=== PATIENT | male | born 1980 | race American Indian/Alaskan Native ===

== ENCOUNTER 2021-10-02 12:50 | Emergency (ER) | payer MEDICARE ==
--- NOTE | 2021-10-02 13:35 | Emergency Department Report ---
ED CPR HPI - General Chief Complaint: Cardiac Arrest/CPR Stated Complaint: CARDIAC ARREST Time Seen by Provider: 10/02/21 13:28 Source: EMS (Verbal report received from emergency medical services. EMS documentation not available at time of chart dictation ), RN notes reviewed Mode of arrival: Stretcher Limitations: Altered Mental Status, Physical Limitation - History of Present Illness Initial Comments: The patient is a 40-year-old gentleman, who was brought to the hospital by emergency medical services today as an out of hospital cardiac arrest. Patient presents with EMS, with a GCS of 3, intubated, receiving active CPR. As per EMS, patient found unresponsive, unknown no CPR was initiated by bystanders. EMS reports that upon their initial arrival, the patient is not breathing and is pulseless, and found to be in ventricular fibrillation. EMS reports shocking the patient x1, subsequent conversion to asystole. EMS also advises that they administered amiodarone, epinephrine, and high-quality CPR. EMS advises that they are caring for the patient for approximately half hour prior to ER arrival. In the emergency room, the patient is pulseless, pupils are midpoint and do not react to light, and he is in asystole. He does not have a shockable rhythm. He continues to receive high-quality CPR, and appropriate ACLS medications. Unfortunately, pulses are not able to be obtained, and he does not have a shockable rhythm. At bedside [id number] transthoracic echocardiogram shows no evidence of ventricular activity. Resuscitative efforts are therefore terminated secondary to obvious medical futility. The patient's family is subsequently informed. MD Complaint: found unresponsive Initial Findings in the Field: no pulse, VTACH/VFIB, PEA Treatments Prior to Arrival: intubation, other airway device, defribrillated shocks #, epinephrine mgs # - Related Data Allergies Allergy/AdvReac Type Severity Reaction Status Date / Time Unable to Assess Allergy Verified 10/02/21 15:21 ED Review of Systems ROS: Stated complaint: CARDIAC ARREST Other details as noted in HPI Comment: Unobtainable due to pts medical conditions ED Physical Exam - General Limitations: Altered Mental Status, Physical Limitation General appearance: obtunded, obese - Head Head exam: Present: normocephalic - Eye Eye exam: Present: normal appearance - ENT ENT exam: Present: normal exam, normal orophraynx, mucous membranes moist, normal external ear exam, other (Endotracheal tube noted in the oropharynx) - Neck Neck exam: Present: normal inspection - Respiratory Respiratory exam: Absent: normal lung sounds bilaterally (No breath sounds) - Cardiovascular Cardiovascular Exam: Present: other (Patient is pulseless). Absent: systolic murmur, diastolic murmur, rubs, gallop - GI/Abdominal GI/Abdominal exam: Present: soft. Absent: distended, tenderness, guarding, rigid, pulsatile mass - Rectal Rectal exam: Present: deferred - exam: Present: normal inspection - Extremities Exam Extremities exam: Present: normal inspection, other (I&O noted in the bilateral lower extremities) - Back Exam Back exam: Present: normal inspection - Neurological Exam Neurological exam: Present: altered, other (Nonverbal, GCS 3 T) - Psychiatric Psychiatric exam: Present: other (Patient is nonverbal) - Skin Skin exam: Present: warm, dry, intact, normal color. Absent: rash ED Medical Decision Making - Medical Decision Making Differential diagnosis, including but not limited to: Hypercarbia, malignant arrhythmia, ACS, PE Critical care attestation.: If time is entered above; I have spent that time in minutes in the direct care of this critically ill patient, excluding procedure time. ED Disposition Clinical Impression: Cardiac arrest Disposition: 20 Is pt being admited?: No Does the pt Need Aspirin: No Condition: Undetermined
[2021-10-02] MEDS ORDERED: SODIUM BICARB 8.4% 50 MEQ/50 ML SYRINGE IV ONE (20:00)
[2021-10-02] MEDS ORDERED: CALCIUM CHLORIDE 1,000 MG/10 ML SYRINGE IV ONE (20:00)
[2021-10-02] MEDS ORDERED: EPINEPHrine 1 MG/10 ML SYRINGE ONE (20:00)
== END 2021-10-02 19:33 ==
LOC: EDBD → ED 12:50
DX: I46.9 Cardiac arrest, cause unspecified (principal)
CPT/HCPCS: 92950; 99285; J0171; J3490